=== PATIENT | male | born 1960 | race Caucasian/White ===

== ENCOUNTER 2021-05-30 14:43 | Emergency (ER) | payer OTHER, SELFPAY ==
--- NOTE | ~2021-05-30 | XR_ITS ---
EXAMINATION: XR wrist LT min 3V DATE: 05/30/2021 15:16 INDICATION: Left wrist pain. Fall. TECHNIQUE: 4 views of left wrist were obtained. COMPARISON: None. FINDINGS: There is a comminuted fracture of distal radius with involvement of the distal articular minaya rface. The main distal fracture fragment demonstrates impaction and dorsal angulation. There is 1 deg ree dorsal tilt of the distal articular surface. There is a comminuted fracture of the ulnar styloid. There is mild osteoarthritis of first carpometacarpal joint. IMPRESSION: 1. Comminuted fracture of distal radius. 2. Comminuted fractures of the ulnar styloid. Reviewed, dictated and finalized at [facility]. 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
[2021-05-30 15:03] VITALS: BP 177/84; PULSE 66; RESP 16; TEMP 37.4; O2SAT 100
--- NOTE | 2021-05-30 15:19 | ED.HEATRA ---
HPI - Head Injury General Chief complaint: Head Injury Stated complaint: head injury/wrist injury Source: patient and RN notes reviewed Limitations: no limitations History of Present Illness HPI Narrative: The right-handed vaccinated patient, a drinker/non smoker, presents with fall. Patient states and bystanders report the patient slipped and fell while drinking and bowling within an hour prior to arrival. He complains [sometimes tearfully] mostly of improving amnesia, left wrist pain and left mu-ism discomfort. No bleeding [oral, ears], LOC, midline neck pain[ he has chronic lat neck issues] ,other injury, anticoagulant use [though he cannot remember all meds]. Vital signs remarkable for GCS of 15, BP 177/84; patient advised and agrees to go to hospital, but declines EMS transfer- to go with friends. Related Data Home Medications Medication Instructions Recorded Confirmed albuterol sulfate 1 inh INHALATION QID PRN 05/30/21 05/30/21 fluticasone propionate [Flonase] 1 spray INTRANASAL BID 05/30/21 05/30/21 modafinil 200 mg PO QAM 05/30/21 05/30/21 sertraline [Zoloft] 100 mg PO DAILY 05/30/21 05/30/21 Allergies Allergy/AdvReac Type Severity Reaction Status Date / Time No Known Allergies Allergy Verified 05/30/21 15:00 Review of Systems Review of Systems: The patient has been informed that they may have pre-hypertension or Hypertension based on a BP reading in the department. I recommend that the patient call the primary care provider listed on their discharge instructions or a physician of their choice this week to arrange follow up for further evaluation of possible pre-hypertension or Hypertension GEneral/Constitutional: No weight loss,fever Eyes: N0: Redness,discharge Ears/Nose/Throat: No: Epistaxis,ear discharge Respiratory: Denies: Hemoptysis Gastrointestinal: No Vomiting, Bleeding-rectal Skin: No Lumps, eruption Neurologic: No Focal Weakness,Sz Hematologic: Denies: Petechiae/Purpura Psychiatric: No: Suicida ideationl All Other Systems: Reviewed and Negative [facility] Past Medical History Medical History (Updated 05/31/21 @ 11:04 by Devin Rosenberg MD) Anxiety Asthma Narcolepsy Surgical History Surgical History (Updated 05/30/21 @ 16:53 by Corina Butler MD) H/O foot surgery Social History Social History (Updated 05/30/21 @ 16:53 by Corina Butler MD) Smoking status: Never smoker Comments At time of signature, agree with nursing past medical, surgical, social and family history. There is no relevant family history pertinent to the presenting complaint Exam Narrative: General Appearance: Well appearing, Well nourished, No distress, GCS 15 EYE: PERRLA, EOMI, Conjunctiva injected/intoxicated Ears: External ear normal, Auditory canal normal Nose: Normal nose, Nares clear Mouth/Throat: Normal appearing, Normal lips Neck: Supple, SROM/ FRAOM Respiratory: Airway patent, No respiratory distress MS-wrist: Normal strength (mostly intact, limited flexion/extension by pain), Tenderness (radially, with mild decreased ROM), Swelling (radially), Other (no anterior drawer, no collateral laxity, ) Skin: Warm, Dry, Normal color Neurological: A&O x3, Speech clear, CN II-XII intact Psychiatric: Normal mood, Normal affect Course Course Emergency Course: Films visualized, interpreted by radiologist, agree, ABnormal see report Vital Signs Vital signs: Vital Signs Temperature 99.3 F 05/30/21 15:03 Pulse Rate 66 05/30/21 15:03 Respiratory Rate 16 05/30/21 15:03 Blood Pressure 177/84 H 05/30/21 15:03 Pulse Oximetry 100 05/30/21 15:03 Temperature 99.3 F 05/30/21 15:03 Pulse Rate 66 05/30/21 15:03 Respiratory Rate 16 05/30/21 15:03 Blood Pressure 177/84 H 05/30/21 15:03 Pulse Oximetry 100 05/30/21 15:03 Discharge Plan Discharge Clinical Impression: Fracture of left wrist Qualifiers: Encounter type: initial encounter Fracture type: clos
== END 2021-05-30 15:39 | disposition short-term general hospital (02) ==
PROVIDERS: Emergency Provider Emergency Medicine
DX: S52.502A Unspecified fracture of the lower end of left radius, initial encounter for closed fracture (principal); S52.612A Displaced fracture of left ulna styloid process, initial encounter for closed fracture; W01.0XXA Fall on same level from slipping, tripping and stumbling without subsequent striking against object, initial encounter; Y93.54 Activity, bowling; S09.90XA Unspecified injury of head, initial encounter; J45.909 Unspecified asthma, uncomplicated; F41.9 Anxiety disorder, unspecified; G47.419 Narcolepsy without cataplexy
CPT/HCPCS: 29125; 73110; 99214; G0463

== ENCOUNTER 2021-05-30 15:53 | Emergency (ER) | payer OTHER, SELFPAY ==
--- NOTE | ~2021-05-30 | CT_ITS ---
EXAMINATION: CT brain wo con DATE: 05/30/2021 17:13 INDICATION: Fall. Head injury. Amnesia. TECHNIQUE: Computed tomography (CT) of the head was performed without intravenous contrast. The mA wa s adjusted according to patient size. Iterative reconstruction technique was employed. Exam dose: 68 1.00 mGy-cm total exam DLP. COMPARISON: None FINDINGS: No intracranial mass lesion or hemorrhage or cerebrovascular accident. No midline shift or mass effect. No subdural or epidural hematoma. Persistent metopic suture, normal variant. The paranasal sinuses and mastoid air cells are unremarkab le. No fracture or bone destruction of the cranial vault. IMPRESSION: No skull fracture or acute intracranial abnormality Reviewed, dictated and finalized at [facility]. Reviewed, dictated and finalized at [facility]. A [employer] HEL[employer]
--- NOTE | ~2021-05-30 | XR_ITS ---
XR_[id number] DATE: 05/30/2021 17:26 INDICATION: Fall. Mid left rib pain. TECHNIQUE: AP chest. 3 views of left ribs. COMPARISON: None FINDINGS: Normal heart size. No hilar or mediastinal enlargement. The lungs are clear of infiltrate o r consolidation. No pleural effusion or pulmonary vascular congestion or pneumothorax is detected. Mi ld thoracic scoliosis. Diffuse osteopenia. Degenerative change at the left acromion clavicular joint. No left rib fracture or bone destruction is evident. IMPRESSION: No evidence of left rib fracture Diffuse osteopenia No active cardiopulmonary disease Reviewed, dictated and finalized at [facility]. Reviewed, dictated and finalized at [facility]. LE PHLEBOTOMIST
--- NOTE | ~2021-05-30 | CT_ITS ---
EXAMINATION: CT cervical spine wo con DATE: 05/30/2021 17:13 INDICATION: Head injury. TECHNIQUE: Computed tomography (CT) of the cervical spine was performed without intravenous contrast. Automated exposure control and iterative reconstruction technique were employed. The dose-length pro duct was 457.13 mGy-cm. COMPARISON: None FINDINGS: There is 3 degrees levocurvature of cervical spine. Vertebral body heights are normal. Ther e is moderately decreased disc height at C4-C5 and mildly decreased disc height at C5-C6 and C6-C7. T he following disc levels are specifically discussed: C2-C3: There is no uncovertebral joint osteoarthritis. There is mild bilateral facet joint osteoarthr itis. There is no neural foraminal stenosis. There is no central canal stenosis. C3-C4: There is mild bilateral uncovertebral joint osteoarthritis. There is severe right and moderate left facet joint osteoarthritis. There is no neural foraminal stenosis. There is no central canal st enosis. C4-C5: There is mild right and severe left uncovertebral joint osteoarthritis. There is mild bilatera l facet joint osteoarthritis. There is mild left neural foraminal stenosis. There is mild central can al stenosis. C5-C6: There is severe right and mild left uncovertebral joint osteoarthritis. There is mild bilatera l facet joint osteoarthritis. There is mild right neural foraminal stenosis. There is mild central ca nal stenosis. C6-C7: There is severe right and mild left uncovertebral joint osteoarthritis. There is mild bilatera l mild right facet joint osteoarthritis. There is mild neural foraminal stenosis. There is no central canal stenosis. C7-T1: There is no uncovertebral joint osteoarthritis. There is severe right and moderate left facet joint osteoarthritis. There is mild bilateral neural foraminal stenosis. There is no central canal st enosis. IMPRESSION: 1. No fracture. 2. Moderate cervical spondylosis. Reviewed, dictated and finalized at location [facility]. [employer]OR [employer] OFFICIALS
[2021-05-30 15:56] VITALS: BP 131/98; PULSE 60; RESP 16; TEMP 36.4; O2SAT 100
[2021-05-30 16:32] VITALS: BP 165/74; PULSE 61; RESP 16; O2SAT 98
--- NOTE | 2021-05-30 16:52 | ED.HEATRA ---
HPI - Head Injury General Chief complaint: Head Injury Stated complaint: fall- dont remember falling- sent from urgent care Time Seen by Provider: 05/30/21 16:41 Source: patient, RN notes reviewed and other (boss) Mode of arrival: ambulatory Limitations: no limitations History of Present Illness HPI Narrative: This is a 61 year old male who presents from [facility] for evaluation of head injury and left wrist fracture s/p fall. Patient does not remember falling due to amnesia. His boss is present at bedside to provide history. He states patient was bowling at [employer] when he slipped on edge of ryan. He tried to break his fall with his left hand and he hit his head on gutter. His boss states he did not have LOC but patient was confused. He was unable initially to tell them their name and where he lived. Patient is now oriented. He was seen at [facility] and he was found to have left wrist fracture. They applied a volar splint at [facility]. He was sent to ER for evaluation of his head injury. Patient denies headache, nausea, or vomiting. He has neck pain but states he has been seen by PCP for neck pain. HE is also complaining of left rib pain but denies shortness of breath. He has been able to ambulate. He is right hand dominant. Related Data Home Medications Medication Instructions Recorded Confirmed albuterol sulfate 1 inh INHALATION QID PRN 05/30/21 05/30/21 fluticasone propionate [Flonase] 1 spray INTRANASAL BID 05/30/21 05/30/21 modafinil 200 mg PO QAM 05/30/21 05/30/21 sertraline [Zoloft] 100 mg PO DAILY 05/30/21 05/30/21 Allergies Allergy/AdvReac Type Severity Reaction Status Date / Time No Known Allergies Allergy Verified 05/30/21 15:00 Review of Systems Review of Systems: All systems reviewed & are unremarkable except as noted in HPI and below PMFSH Past Medical History Medical History (Updated 05/30/21 @ 19:37 by Corina Butler MD) Anxiety Asthma Narcolepsy Surgical History Surgical History (Updated 05/30/21 @ 16:53 by Corina Butler MD) H/O foot surgery Social History Social History (Updated 05/30/21 @ 16:53 by Corina Butler MD) Smoking status: Never smoker Exam Const: General: alert Orientation/consciousness: patient oriented x3 HENMT: Head: normocephalic and other (left temporal abrasion) Ears: TM's normal bilaterally Face and sinus: normal facial exam, sinuses nontender and face symmetric Mouth: Yes Normal oral and palatal mucosa present, Yes lip normal, Yes oropharynx normal and Yes moist mucous membranes Throat: posterior oropharynx normal, tonsils normal and uvula midline Eyes: Pupils: Equal, round and reactive pupils present EOM: EOMs intact bilaterally Chest: Chest palpation & inspection: tenderness (left lateral rib) Resp: Effort & Inspection: normal respiratory effort and no retractions Auscultation: clear to auscultation bilaterally Cardio: Rate: regular rate Rhythm: regular rhythm Heart sounds: no murmurs GI: GI Palp: Yes Soft to palpation, No Tenderness to palpation present (GI) and No Guarding due to palpation present (GI) Auscultation: normal bowel sounds Neuro: General: patient oriented x3 and moves all extremities Cranial nerves: Yes CN's II-XII intact bilaterally Extrem: Other: left wrist in volar splint, able to move fingers distally. cap refill less than 3 second Psych: Mental Status: mental status grossly normal Affect: normal affect Course Reevaluation(s) Reevaluation #1: I discussed with patient and friend about results. His splint was removed and no skin break down seen. Nurse placed another splint. I spoke with orthoDr. Johnston who can see patient next week. Date: 05/30/21 Time: 19:34 Vital Signs Vital signs: Vital Signs Temperature 97.6 F 05/30/21 15:56 Pulse Rate 60 05/30/21 15:56 Respiratory Rate 16 05/30/21 15:56 Blood Pressure 131/98 H 05/30/21 15:56 Pulse Oxim
[2021-05-30 18:15] VITALS: BP 151/88; PULSE 61; RESP 18; O2SAT 98
[2021-05-30] MEDS: ONDANSETRON HCL ODT 4 MG TABLET PO (18:52)
[2021-05-30] MEDS: HYDROcodone/acetaminophen (*CRX) 5-325 MG TABLET 1 TAB PO (18:52)
[2021-05-30 19:55] VITALS: BP 151/85; PULSE 65; RESP 18; O2SAT 98
== END 2021-05-30 19:59 | disposition home or self-care (01) ==
PROVIDERS: Emergency Provider General Practice
DX: S06.0X0A Concussion without loss of consciousness, initial encounter (principal); S52.502A Unspecified fracture of the lower end of left radius, initial encounter for closed fracture; S52.602A Unspecified fracture of lower end of left ulna, initial encounter for closed fracture; R07.81 Pleurodynia; F41.9 Anxiety disorder, unspecified; J45.909 Unspecified asthma, uncomplicated; M47.812 Spondylosis without myelopathy or radiculopathy, cervical region; M85.88 Other specified disorders of bone density and structure, other site; W01.198A Fall on same level from slipping, tripping and stumbling with subsequent striking against other object, initial encounter; Y93.54 Activity, bowling
CPT/HCPCS: 29125; 70450; 71101; 72125; 99284; A4565; A9270